=== PATIENT | female | born 1955 | race Caucasian/White ===

== ENCOUNTER 2023-08-25 17:33 | Emergency (ER) | payer MEDICARE, MEDICAID, SELFPAY ==
[2023-08-25] VITALS (8 sets, daily range): BP systolic 131–206; BP diastolic 80–117; PULSE 82–95; RESP 16–23; TEMP 36.4; O2SAT 91–97; BMI 39.0
--- NOTE | 2023-08-25 17:53 | EDS_ITS ---
HPI History of Present Illness Chief Complaint: Cough Informant: patient and family Onset/Context/Timing Onset: Month(s) (1) Context: gradual Timing: Continuous Quality: Positive for Dyspnea on exertion Worsened by: Exertion and Lying flat Relieved by: Oxygen and Albuterol Associated Symptoms cough, fever, subjective and yellow sputum; Negative for rhinorrhea, post nasal drip, ear pain, sore throat, chills, sweats, clear sputum, white sputum or green sputum Chest Pain: Positive for None Narrative Narrative: Patient presents with shortness of breath that has been getting worse over the past month. Patient states her breathing is worse when she lays flat and exerts herself. Patient states it is better with rest and better with albuterol treatments. Patient states she is on home oxygen and uses home aerosols. Patient admits to coughing up some yellow sputum. Patient admits to some subjective fevers but did not take her temperature at home. Patient states she feels raspy in her chest. Patient completed a course of Augmentin 1 week ago. Patient is currently on prednisone. [facility] Medical History (Updated 08/25/23 @ 22:[address] Arnoldo Dee DO) Anxiety Borderline diabetes COPD (chronic obstructive pulmonary disease) Facial basal cell cancer Fatty liver disease, nonalcoholic HTN (hypertension) Allergy/AdvReac Type Severity Reaction Status Date / Time No Known Allergies Allergy Verified 08/25/23 20:50 Surgical History (Updated 08/25/23 @ 18:[address] Arnoldo Dee DO) H/O: hysterectomy Hx of thumb surgery Social History Smoking Status: Current every day smoker tobacco type: cigarettes ROS ROS ED Constitutional Constitutional ED: Reports fever(s); Denies chills Eyes Eyes: Denies blurry vision or change in vision ENT ENT ED: Denies rhinorrhea or sore throat Cardiovascular Cardiovascular: Denies chest pain or palpitations Respiratory/Chest Respiratory/Chest: Reports cough, dyspnea and sputum Gastrointestinal Gastrointestinal: Reports diarrhea; Denies nausea or vomiting Genitourinary Genitourinary ED: Denies dysuria or hematuria Musculoskeletal Musculoskeletal: Denies back pain or neck pain Integumentary Denies abscess or rash Neurologic Neurologic: Reports headache(s); Denies weakness Allergic/Immunologic Allergic/Immunologic ED: Denies mouth swelling or urticaria EXAM Physical Exam Const Vital Signs: 08/25/23 17:34 08/25/23 17:33 08/25/23 17:33 Temperature 97.6 F L Temperature Source Oral Pulse Rate 82 95 Respiratory Rate 16 16 Respiratory Effort Short of Breath Respiratory Depth Shallow Respiratory Pattern Tachypnea Blood Pressure 165/80 H Blood Pressure Mean 108 Pulse Ox 97 95 Oxygen Delivery Method Room Air Room Air Room Air 08/25/23 17:35 08/25/23 18:19 08/25/23 18:15 Temperature 97.6 F L Temperature Source Temporal Pulse Rate 90 95 Respiratory Rate 16 20 H Respiratory Effort Respiratory Depth Respiratory Pattern Blood Pressure 131/117 H Blood Pressure Mean 121 Pulse Ox 96 Oxygen Delivery Method Room Air Room Air 08/25/23 19:33 08/25/23 21:33 08/25/23 19:47 Temperature Temperature Source Pulse Rate 86 93 84 Respiratory Rate 23 H 18 18 Respiratory Effort Respiratory Depth Respiratory Pattern Blood Pressure 177/102 H 188/100 H 206/105 H Blood Pressure Mean 127 129 138 Pulse Ox 96 91 97 Oxygen Delivery Method Room Air Room Air Positive well nourished and well developed General Appearance ED: well developed and NAD HEENT Reports moist mucous membranes Neck supple and no JVD Resp normal respiratory effort Auscultation: rhonchi throughout and wheezes throughout Cardio regular rate and regular rhythm Neuro oriented x3, CN's II-XII intact bilaterally and no sensory deficits noted Epi Coma Scale: document GCS findings Spontaneous Obeys Commands Oriented 15 Sensorium / Orientation: alert Speech: speech normal Motor Exam: strength 5/5 throughout Psych mental status grossly normal MDM MDM MDM Narrative Medical decision making narrative: Differential diagnosis includes pneumonia, COPD exacerbation, bronchitis, viral infection, congestive heart failure, cardiac dysrhythmia, and cardiac ischemia. EKG will be obtained to assess for cardiac dysrhythmia and cardiac ischemia. Chest x-ray will be obtained to assess for pneumonia, pneumothorax, and congestive heart failure. CBC will be obtained to assess for leukocytosis and anemia. Basic metabolic profile will be obtained to assess for electrolyte abnormality and renal function. High-sensitivity troponin will be obtained to assess for cardiac ischemia. COVID-19, influenza, and RSV PCR will be obtained to assess for viral infection. Lab Data Attestation: I reviewed the patient's lab results. Lab results narrative: CBC was reviewed. There is a mild anemia with a hemoglobin of 11.7 and hematocrit 36.9. The remainder is within normal limits. Basic metabolic profile was reviewed. Glucose was slightly elevated at 165. BUN was slightly elevated at 24. The remainder is within normal limits. High-sensitivity troponin was reviewed and was normal at 7. COVID-19 PCR was reviewed and was negative. Influenza PCR was reviewed and was negative for influenza A and influenza B. RSV PCR was reviewed and was negative. Labs: Laboratory Results - last 24 hr 08/25/23 18:22 WBC 9.7 RBC 4.57 Hgb 11.7 L Hct 36.9 L MCV 80.7 L MCH 25.6 L MCHC 31.7 L RDW Std Deviation 38.1 RDW Coeff of Franc[place]a 13.0 Plt Count 362 MPV 8.7 Immature Gran % (Auto) 1.100 H Neut % (Auto) 73.2 H Lymph % (Auto) 18.1 L [place] % (Auto) 5.9 Eos % (Auto) 1.4 Baso % (Auto) 0.3 Absolute Neuts (auto) 7.1 Absolute Lymphs (auto) 1.76 Nucleated RBC % 0 Sodium 136 Potassium 3.6 Chloride 101 Carbon Dioxide 31.0 Anion Gap 4 L BUN 24 H Creatinine 0.84 Estim Creat Clear Calc 65.24 Est GFR (MDRD) Af Amer 87 Est GFR (MDRD) Non-Af 72 BUN/Creatinine Ratio 28.7 H Glucose 165 H Calcium 8.8 Troponin I High Sens 7 Radiography Diagnostic Testing: Clinical Impression(s) from Imaging Studies Chest X-Ray 08/25/23 18:23 IMPRESSION: No radiographic evidence of acute cardiopulmonary disease. Electronically Signed: Иван Odonnell MD at 18:36 EST , PA and lateral chest x-ray was obtained. There are 2 views. On my independent interpretation, lung saez are clear. There is normal cardiac silhouette. Bony thorax is normal. There is no acute process noted. Radiologist also interpreted the x-ray and agrees. EKG Initial EKG: Attestation: I personally reviewed and interpreted this EKG as follows: Interpretation: Sinus Rhythm (89) and No Acute Injury Pattern Comments: EKG was obtained. On my independent interpretation, it showed a normal sinus rhythm with a rate of 89. GA interval, QRS interval, and QTc intervals were all normal. [place] was normal. There are no acute ST or T wave changes. Prior EKG tracings: not available for review Prior: No Prior Treatment and Re-Evaluation :: Patient was given a DuoNeb aerosol here. Patient was feeling better on reevaluation. Patient was advised of her findings. Patient blood pressure increased to 206 systolic. Patient was given a dose of clonidine here. Patient's blood pressure improved after this. Patient was able to ambulate in the emergency department with a walker. Patient maintaining oxygen saturation of 94%. Patient wants to go home. Patient was instructed to continue her aerosols at home as prescribed. Patient was instructed to continue her prednisone as prescribed. Patient was instructed to follow-up with her primary care physician in 3 to 5 days. Patient was instructed return if worse in any way. Patient understood and was agreeable with the plan. All questions were answered. Discharge Plan Triage Chief Complaint: Cough ED Provider: Arnoldo Dee Dx/Rx/DC Orders Clinical Impression: Acute exacerbation of chronic obstructive pulmonary disease (COPD), Hypertension Instructions: ED COPD Flare, ED Hypertension, Established Primary Care Provider: Care Physician,No Primary Referrals: Care Physician,No Primary [Primary Care Provider] - Doctor,Your [Non-Staff] - 3-5 Days Disposition Disposition: Home, Self Care
[2023-08-25] MEDS: Ipratropium/Albuterol Sulfate 3 ML AMPUL.NEB INHALATION (18:15)
--- NOTE | 2023-08-25 18:23 | RAD_ITS ---
EXAM: XR CHEST, 2 VIEWS CLINICAL INDICATION: Dyspnea TECHNIQUE: Frontal and lateral views of the chest. COMPARISON: No relevant prior studies available. FINDINGS: LUNGS AND PLEURAL SPACES: Unremarkable. No consolidation or edema. No pneumothorax. No effusion. HEART: Unremarkable. Cardiac silhouette not enlarged. MEDIASTINUM: Central airways and mediastinal contour are unremarkable. BONES/JOINTS: Unremarkable. No acute fracture. SOFT TISSUES: Unremarkable. RAD/Chest PA and Lateral IMPRESSION: No radiographic evidence of acute cardiopulmonary disease. Electronically Signed: Иван Odonnell MD at 18:36 EST ,
[2023-08-25 18:27] LABS: Absolute Lymphocyte Count 1.76 X10^3/uL (0.83-4.51); Absolute Neutrophil Count 7.1 X10^3/uL (2.0-7.7); Basophil# 0.03 X10^3/uL; Basophil% 0.3 % (0-1); Eosinophil# 0.14 X10^3/uL; Eosinophils% 1.4 % (0-5); Hematocrit 36.9 % (37-47); Hemoglobin 11.7 g/dL (12.0-15.0); Lymphocyte # 1.76 X10^3/ul (0.83-4.51); Lymphocyte % 18.1 % (19-41); Mean Corp Hgb Conc 31.7 g/dL (32-36); Mean Corpuscular Hgb 25.6 pg (27.0-32.0); Mean Corpuscular Volume 80.7 fL (81-99); Mean Platelet Vol. 8.7 fl (6.2-12.0); Monocyte# 0.57 X10^3/uL; Monocyte% 5.9 % (0-10); NRBC Flagged by Analyzer 0 % (0-5); Neutrophil # 7.12 X10^3/uL (2.7-7.7); Neutrophil % 73.2 % (47-70); Platelet Count 362 K/mm3 (150-450); RBC Distribution Width SD 38.1 fl (35.1-43.9); Red Blood Count 4.57 M/mm3 (4.2-5.4); White Blood Count 9.7 K/mm3 (4.4-11.0)
[2023-08-25 18:45] LABS: Anion Gap 4 (5-15); BUN 24 mg/dL (7-18); BUN/Creat Ratio 28.7 RATIO (10-20); Calcium,Total 8.8 mg/dL (8.5-10.1); Chloride 101 mmol/L (98-107); Creatinine, Serum 0.84 mg/dL (0.55-1.02); EST Glomerular Filtration Rate 72 mL/min (>60); Est Glom Filt Rate - Afr Amer 87 mL/min (>60); Estimated Creatinine Clearance 65.24 ml/min; Glucose 165 mg/dL (74-106); Potassium 3.6 mmol/L (3.5-5.1); Sodium Level 136 mmol/L (136-145); Troponin-I HS 7 pg/mL (3.0-54.0)
[2023-08-25] MEDS: cloNIDine HCl 0.1 MG Tablet 0.100000000000000006 MG PO (20:49)
== END 2023-08-25 22:24 | disposition home or self-care (01) ==
PROVIDERS: Emergency Provider Emergency Medicine; Visit Provider Emergency Medicine
DX: J44.1 Chronic obstructive pulmonary disease with (acute) exacerbation (principal); F17.210 Nicotine dependence, cigarettes, uncomplicated; I10 Essential (primary) hypertension; Z90.710 Acquired absence of both cervix and uterus
CPT/HCPCS: 71046; 80048; 84484; 85025; 87631; 93005; 94640; 99284

== ENCOUNTER 2024-06-01 13:25 | Observation (INO) | payer MEDICARE, SELFPAY ==
[2024-06-01] VITALS (16 sets, daily range): BP systolic 142–163; BP diastolic 86–98; PULSE 94–113; RESP 16–23; TEMP 36.2–36.7; O2SAT 91–98; BMI 32.0
[2024-06-01] MEDS: MethylPREDNISolone 125 MG/2 ML Vial IV (14:05)
[2024-06-01] MEDS: Ipratropium/Albuterol Sulfate 3 ML AMPUL.NEB INHALATION ×3 (14:17→23:14)
[2024-06-01] MEDS: Albuterol 2.5 MG/3 ML VIAL.NEB. INHALATION (14:17)
[2024-06-01 14:28] LABS: Absolute Lymphocyte Count 1.81 X10^3/uL (0.83-4.51); Absolute Neutrophil Count 9.6 X10^3/uL (2.0-7.7); Basophil# 0.07 X10^3/uL; Basophil% 0.5 % (0-1); Eosinophil# 0.29 X10^3/uL; Eosinophils% 2.3 % (0-5); Hematocrit 43.5 % (37-47); Hemoglobin 14.2 g/dL (12.0-15.0); Lymphocyte # 1.81 X10^3/ul (0.83-4.51); Lymphocyte % 14.2 % (19-41); Mean Corp Hgb Conc 32.6 g/dL (32-36); Mean Corpuscular Hgb 24.8 pg (27.0-32.0); Mean Corpuscular Volume 75.9 fL (81-99); Mean Platelet Vol. 9.2 fl (6.2-12.0); Monocyte# 0.97 X10^3/uL; Monocyte% 7.6 % (0-10); NRBC Flagged by Analyzer 0 % (0-5); Neutrophil # 9.56 X10^3/uL (2.7-7.7); Neutrophil % 74.7 % (47-70); Platelet Count 352 K/mm3 (150-450); RBC Distribution Width CV 14.1 % (11.6-14.6); Red Blood Count 5.73 M/mm3 (4.2-5.4); White Blood Count 12.8 K/mm3 (4.4-11.0)
[2024-06-01 14:37] LABS: Anion Gap 9 (5-15); BUN 24 mg/dL (7-18); BUN/Creat Ratio 31.5 RATIO (10-20); Calcium,Total 9.3 mg/dL (8.5-10.1); Chloride 97 mmol/L (98-107); Creatinine, Serum 0.76 mg/dL (0.55-1.02); EST Glomerular Filtration Rate 80 mL/min (>60); Est Glom Filt Rate - Afr Amer 97 mL/min (>60); Glucose 117 mg/dL (74-106); Potassium 3.6 mmol/L (3.5-5.1); Sodium Level 134 mmol/L (136-145)
[2024-06-01] MEDS: Ensure Plus High Protein 120 ML LIQUID PO (16:50)
[2024-06-01 17:05] LABS: BNP,B-Type NATRIURETIC PEPTIDE 40.8 pg/mL (0-100)
[2024-06-01] MEDS: Flecainide 100 MG Tablet 50 MG PO (21:55)
[2024-06-01] MEDS: Gabapentin 800 MG Tablet PO (21:55)
[2024-06-01] MEDS: Amitriptyline 25 MG Tablet 50 MG PO (21:55)
[2024-06-02] VITALS (12 sets, daily range): BP systolic 98–149; BP diastolic 55–95; PULSE 78–108; RESP 16–20; TEMP 36.4–37.2; O2SAT 93–98
[2024-06-02] MEDS: Ipratropium/Albuterol Sulfate 3 ML AMPUL.NEB INHALATION ×6 (03:09→23:16)
[2024-06-02] MEDS: 0.9% Saline Lock 10 ML Syringe IV ×2 (06:21→22:23)
[2024-06-02 06:39] LABS: Absolute Lymphocyte Count 0.78 X10^3/uL (0.83-4.51); Absolute Neutrophil Count 6.2 X10^3/uL (2.0-7.7); Basophil# 0.02 X10^3/uL; Basophil% 0.3 % (0-1); Hematocrit 42.3 % (37-47); Hemoglobin 14.2 g/dL (12.0-15.0); Lymphocyte # 0.78 X10^3/ul (0.83-4.51); Mean Corp Hgb Conc 33.6 g/dL (32-36); Mean Corpuscular Hgb 25.1 pg (27.0-32.0); Mean Corpuscular Volume 74.9 fL (81-99); Mean Platelet Vol. 9.1 fl (6.2-12.0); Monocyte# 0.11 X10^3/uL; Monocyte% 1.5 % (0-10); NRBC Flagged by Analyzer 0 % (0-5); Neutrophil # 6.15 X10^3/uL (2.7-7.7); Neutrophil % 86.5 % (47-70); Platelet Count 371 K/mm3 (150-450); RBC Distribution Width CV 14.1 % (11.6-14.6); RBC Distribution Width SD 37.5 fl (35.1-43.9); Red Blood Count 5.65 M/mm3 (4.2-5.4); White Blood Count 7.1 K/mm3 (4.4-11.0)
[2024-06-02 07:00] LABS: International Normalized Ratio 1.1; Prothrombin Time (Protime)PT. 14.3 SECONDS (11.7-14.9)
[2024-06-02 07:53] LABS: ALB/GLOB Ratio 0.9 RATIO (0.9-2.4); AST(SGOT) 10 U/L (15-37); Alanine Aminotransfer ALT/SGPT 15 U/L (13-56); Albumin, Serum 3.7 g/dL (3.2-5.0); Alkaline Phosphatase 79 U/L (45-117); Anion Gap 10 (5-15); BUN 30 mg/dL (7-18); Bilirubin, Direct 0.09 mg/dL (0.00-0.30); Calcium,Total 9.5 mg/dL (8.5-10.1); Chloride 96 mmol/L (98-107); Creatinine, Serum 0.91 mg/dL (0.55-1.02); EST Glomerular Filtration Rate 66 mL/min (>60); Est Glom Filt Rate - Afr Amer 79 mL/min (>60); Estimated Creatinine Clearance 53.29 ml/min; Globulin 3.9 g/dL (2.2-4.2); Glucose 173 mg/dL (74-106); Magnesium 1.7 mg/dL (1.6-2.6); Phosphorus 3.6 mg/dL (2.5-4.9); Potassium 3.9 mmol/L (3.5-5.1); Protein, Total 7.6 g/dL (6.4-8.2); Sodium Level 132 mmol/L (136-145); Thyroid Stim Hormone (TSH) 0.263 uIU/mL (0.358-3.740)
[2024-06-02] MEDS: Gabapentin 800 MG Tablet PO ×2 (08:57→22:23)
[2024-06-02] MEDS: Flecainide 100 MG Tablet 50 MG PO ×2 (08:57→22:23)
[2024-06-02] MEDS: hydroCHLOROthiazide 25 MG Tablet PO (08:58)
[2024-06-02] MEDS: Enoxaparin 40 MG/0.4 ML Syringe SC (08:58)
[2024-06-02] MEDS: Lisinopril 40 MG Tablet PO (08:58)
[2024-06-02] MEDS: Amitriptyline 25 MG Tablet 50 MG PO (22:23)
[2024-06-03 03:29] VITALS: BP 114/58; PULSE 90; RESP 16; TEMP 36.4; O2SAT 99
[2024-06-03] MEDS: Ipratropium/Albuterol Sulfate 3 ML AMPUL.NEB INHALATION ×3 (03:33→10:32)
[2024-06-03 03:34] VITALS: PULSE 94; RESP 20; O2SAT 98
[2024-06-03 07:15] VITALS: PULSE 90; RESP 18; O2SAT 94
[2024-06-03 08:53] VITALS: BP 115/86; PULSE 95; RESP 18; TEMP 36.4; O2SAT 96
[2024-06-03 09:06] VITALS: O2SAT 85; O2SAT 86; O2SAT 88; O2SAT 90; O2SAT 91
[2024-06-03] MEDS: hydroCHLOROthiazide 25 MG Tablet PO (09:11)
[2024-06-03] MEDS: Enoxaparin 40 MG/0.4 ML Syringe SC (09:11)
[2024-06-03] MEDS: Flecainide 100 MG Tablet 50 MG PO (09:11)
[2024-06-03] MEDS: Lisinopril 40 MG Tablet PO (09:11)
[2024-06-03] MEDS: Gabapentin 800 MG Tablet PO (09:13)
[2024-06-03 10:32] VITALS: PULSE 75; RESP 18
== END 2024-06-03 11:37 | disposition home or self-care (01) ==
LOC: ED 15:32 → PCU 15:43
PROVIDERS: Admitting Provider Internal Medicine; Emergency Provider Emergency Medicine; PCP Registered Nurse; Referring Provider Emergency Medicine; Visit Provider Internal Medicine
DX: J44.1 Chronic obstructive pulmonary disease with (acute) exacerbation (principal); I48.91 Unspecified atrial fibrillation; I10 Essential (primary) hypertension; F17.210 Nicotine dependence, cigarettes, uncomplicated; R06.01 Orthopnea; F41.9 Anxiety disorder, unspecified; K76.0 Fatty (change of) liver, not elsewhere classified; R73.03 Prediabetes; Z99.81 Dependence on supplemental oxygen; Z79.899 Other long term (current) drug therapy; Z79.51 Long term (current) use of inhaled steroids; F32.A Depression, unspecified
CPT/HCPCS: 36415; 71045; 80048; 80053; 82248; 83735; 83880; 84100; 84443; 85025; 85610; 87040; 87631; 93005; 94640; 94668; 96372; 96374; 96376; 97162; 97802; 99221; 99252; 99285; 99406; J7040; A4216; G0378; G0463